=== PATIENT | male | born 1965 | race Hispanic/Latino ===

== ENCOUNTER 2018-06-09 21:44 | Emergency (ER) | payer OTHER, SELFPAY ==
[2018-06-09 22:34] LABS: Absolute Lymphocytes (CBC) 2.1 K/uL (0.7-4.9); Absolute Monocytes 0.4 K/uL (0.1-1.3); Basophils % 0.9 % (0-1.3); Eosinophils % 8.4 % (0-4.4); Hematocrit 38.7 % (39.6-49.0); Lymphocytes % 41.8 % (15.3-44.8); MPV 9.2 fL (7.6-11.3); Monocytes % 8.5 % (3.3-12.3); Protime INR 0.97; RBC Red Blood Cell Count 4.54 M/uL (4.33-5.43)
[2018-06-09] MEDS ORDERED: NA CHLORIDE 0.9% 1,000 ML ONE (22:39)
[2018-06-09] MEDS ORDERED: ONDANSETRON 4 MG/2 ML VIAL ONE (22:39)
[2018-06-09 22:52] LABS: ALT/SGPT 19 U/L (12-78); AST/SGOT 16 U/L (15-37); Albumin 3.8 g/dL (3.4-5.0); Alkaline Phosphatase 80 U/L (45-117); BUN Blood Urea Nitrogen 11 mg/dL (7-18); Bicarbonate 25 mmol/L (21-32); Bilirubin Direct 0.1 mg/dL (0-0.2); Bilirubin Total 0.4 mg/dL (0.2-1.0); Glucose Level 96 mg/dL (74-106); Magnesium 2.4 mg/dL (1.8-2.4); NT PRO-BNP 38 pg/mL (<125); Potassium 3.5 mmol/L (3.5-5.1); Protein, Total 7.8 g/dL (6.4-8.2); Sodium Level 143 mmol/L (136-145); Troponin (Emerg Dept Use Only) < 0.02 ng/mL (0.0-0.045)
[2018-06-09 23:12] LABS: CKMB Creatine Kinase MB 1.1 ng/mL (0.3-3.6); Creatine Phosphokinase 105 U/L (39-308)
[2018-06-09 23:43] LABS: Urine Blood NEGATIVE (NEG); Urine Glucose NEGATIVE (NEG); Urine Protein NEGATIVE (NEG)
[2018-06-09 23:54] LABS: Urine Bacteria <20 /HPF (NONE SEEN); Urine Culture Reflex Order NOT NEEDED; Urine RBC <5 /HPF (NONE SEEN)
[2018-06-09 23:55] LABS: Barbiturates NEGATIVE (NEGATIVE); Benzodiazepines NEGATIVE (NEGATIVE); Cocaine NEGATIVE (NEGATIVE); METHAMPHETAM NEGATIVE (NEGATIVE); Methadone NEGATIVE (NEGATIVE); Opiates NEGATIVE (NEGATIVE); Phencyclidine NEGATIVE (NEGATIVE); THC Cannibis NEGATIVE (NEGATIVE)
--- NOTE | 2018-06-10 01:08 | ER ---
Nurse's Notes [facility] Name: Vineet Pleitez Age: 53 yrs Sex: Male : 1965 Arrival Date: 06/09/2018 Time: 21:45 Bed 6 Private MD: Diagnosis: Weakness-general Presentation: 06/09 22:12 Presenting complaint: Child states: Found about an hour ago at home, no A/C on, lp1 unresponsive per family; Son stats patient would not open his eyes, had to be carried to car, confused; Patient awake on arrival to ED, A/O x2; Patient states feeling weak, achy all over. Transition of care: patient was not received from another setting of care. Onset of symptoms was June 09, 2018 at 21:00. Risk Assessment: Do you want to hurt yourself or someone else? Patient reports no desire to harm self or others. Care prior to arrival: None. 22:12 Method Of Arrival: Wheelchair lp1 22:12 Acuity: JUAN FRANCISCO 2 lp1 22:20 Initial Sepsis Screen: Does the patient meet any 2 criteria? Altered Mental Status. lp1 Does the patient have a suspected source of infection? No. Patient's initial sepsis screen is negative. 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 - Social history:: Smoking status: Patient uses tobacco products, smokes one-half pack cigarettes per day, Patient uses alcohol. - Ebola Screening: : No symptoms or risks identified at this time. Screenin:19 Abuse screen: Denies threats or abuse. Denies injuries from another. Nutritional lp1 screening: No deficits noted. Tuberculosis screening: Has had TB. Fall Risk Total Beaver Fall Scale indicates High Risk Score (45 or more points). Fall prevention measures have been instituted. Side Rails Up X 2 Family Present and informed to notify staff if the need to leave the bedside As available patient and family educated on Fall Prevention Program and Strategies. Assessment: 22:17 General: Appears in no apparent distress. Behavior is cooperative, drowsy, Reports lp1 chills for feeling ill for. Pain: Complains of pain in general body Quality of pain is described as aching. Neuro: Level of Consciousness is awake, confused, lethargic, Oriented to person, place, Cash [employer] are equal bilaterally Moves all extremities. Full function Speech is normal, Intact. Cardiovascular: Capillary refill < 3 seconds in bilateral fingers Patient's skin is warm and dry. Rhythm is sinus rhythm. Respiratory: Respiratory effort is even, unlabored, Breath sounds are clear bilaterally. GI: Abdomen is flat, Reports vomiting, Patient currently denies diarrhea. : No signs and/or symptoms were reported regarding the genitourinary system. EENT: No signs and/or symptoms were reported regarding the EENT system. Derm: Skin is intact, Skin is dry, Skin is normal. Musculoskeletal: No signs and/or symptoms reported regarding the musculoskeletal system. 22:45 Reassessment: Patient seems more alert at this time; talking with family at bedside, lp1 eyes wide open. Neuro: Level of Consciousness is awake, alert, obeys commands, Oriented to person, place, situation. 23:45 Reassessment: Patient appears in no apparent distress at this time. Patient and/or lp1 family updated on plan of care and expected duration. Pain level reassessed. Patient resting, eyes closed, respirations unlabored; family at bedside. 06/10 01:30 Reassessment: Patient and/or family updated on plan of care and expected duration. Pain lp1 level reassessed. Patient is alert, oriented x 3, equal unlabored respirations, skin warm/dry/pink. Patient states feeling better. Patient states symptoms have improved. Neuro: Gait is steady. Vital Signs: 06/09 22:14 BP 134 / 82; Pulse 69; Resp 18; Temp 98.1(O); Pulse Ox 97% on R/A; Weight 63.5 kg; lp1 Height 5 ft. 11 in. (180.34 cm); Pain 5/10; 23:00 BP 114 / 73; Pulse 64; Resp 20; Pulse Ox 98% on R/A; lp1 06/10 00:00 BP 99 / 59; Pulse 72; Resp 17; Pulse Ox 97% on R/A; lp1 01:37 BP 107 / 71; Pulse 71; Resp 16; Temp 97.8; Pulse Ox 98% on R/A; ag4 06/09 22:14 Body Mass Index 19.53 (63.50 kg, 180.34 cm) lp1 ED Course: 06/09 21:45 Patient arrived in ED. am2 22:00 EKG done, by ED staff, reviewed by Tai IVERSON. lp1 22:00 Inserted saline lock: 20 gauge in right forearm, using aseptic technique. Blood lp1 collected. 22:11 Tai Posadas PA is PHCP. cp 22:11 Tai Branch MD is Attending Physician. cp 22:12 Graciela Higginbotham, RN is Primary Nurse. lp1 22:13 Triage completed. lp1 22:14 Arm band placed on left wrist. lp1 22:20 Patient has correct armband on for positive identification. Placed in gown. Bed in low lp1 position. ekg monitor on. Pulse ox on. NIBP on. 06/10 00:37 CT completed. Patient tolerated procedure well. Patient moved to CT via stretcher. Patient moved back from CT. 00:41 CT Head Brain wo Cont In Process Unspecified. EDMS 01:03 XRAY Chest (1 view) In Process Unspecified. EDMS 01:43 No provider procedures requiring assistance completed. IV discontinued, No lp1 redness/swelling at site. Pressure dressing applied. Administered Medications: 06/09 22:25 Drug: NS 0.9% 1000 ml Route: IV; Rate: 1 bolus; Site: right forearm; lp1 06/10 00:00 Follow up: IV Status: Completed infusion; IV Intake: 1000ml lp1 01:44 Not Given (No complaint of nausea): Zofran 4 mg IVP once; over 2 minutes lp1 Point of Care Testing: Blood Glucose: 06/09 22:08 Blood Glucose: 90 mg/dL; lp1 Ranges: Intake: 06/10 00:00 IV: 1000ml; Total: 1000ml. lp1 Outcome: 01:08 Discharge ordered by . cp 01:43 Discharged to home ambulatory, with family. lp1 01:43 Condition: good 01:43 Discharge instructions given to patient, Instructed on discharge instructions, follow up and referral plans. Demonstrated understanding of instructions, follow-up care. 01:45 Patient left the ED. lp1 Signatures: Dispatcher [employer] EDNE Todd Diaz Graciela Higginbotham, RN RN lp1 Tai Posadas PA PA cp Moreno, Amanda am2 Del Morrow ag4 Corrections: (The following items were deleted from the chart) 06/09 22:14 22:12 Presenting complaint: Child states: Found about an hour ago at home, no A/C on, lp1 unresponsive per family; Son stats patient would not open his eyes, had to be carried to car, confused; Patient awake on arrival to ED, A/O x2; Patient states feeling weak lp1
--- NOTE | 2018-06-10 01:09 | EDPHYS ---
Physician Documentation [facility] Name: Vineet Pleitez Age: 53 yrs Sex: Male : 1965 Arrival Date: 06/09/2018 Time: 21:45 Bed 6 Private MD: ED Physician Tai Branch HPI: 06/09 22:25 This 53 yrs old Male presents to ER via Wheelchair with complaints of Altered cp Mental Status, dehydration. 22:25 The patient presents with decreased responsiveness. Onset: The symptoms/episode cp began/occurred today. Possible causes: dehydration. Associated signs and symptoms: Pertinent positives: general weakness, Pertinent negatives: abdominal pain, chest pain, diarrhea, shortness of breath, vomiting. Current symptoms: In the emergency department the patient's symptoms general weakness. Patient's baseline: Neuro: alert and fully oriented, Motor: no deficits, Ambulation: walks without assistance, Speech: normal. Patient reports he was at home this evening laying down when he fell asleep. Son reports difficulty awakening patient and patient now c/o general weakness. 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 - Social history:: Smoking status: Patient uses tobacco products, smokes one-half pack cigarettes per day, Patient uses alcohol. - Ebola Screening: : No symptoms or risks identified at this time. ROS: 22:30 Constitutional: Positive for body aches, Negative for chills, fever, poor PO intake. cp 22:30 Eyes: Negative for injury, pain, redness, and discharge. cp 22:30 ENT: Negative for drainage from ear(s), ear pain, sore throat, difficulty swallowing, difficulty handling secretions. 22:30 Cardiovascular: Negative for chest pain, edema. 22:30 Respiratory: Negative for cough, shortness of breath, wheezing. 22:30 Abdomen/GI: Negative for abdominal pain, vomiting, diarrhea, constipation, anorexia, black/tarry stool, rectal bleeding. 22:30 Back: Negative for injury or acute deformity. 22:30 : Negative for urinary symptoms, small amounts, testicular pain 22:30 Skin: Negative for cellulitis, rash. 22:30 Neuro: Positive for general weakness, Negative for altered mental status, headache, seizure activity, speech changes. 22:30 All other systems are negative. Exam: 22:10 ECG was reviewed by the Attending Physician. cp 22:35 Constitutional: The patient appears in no acute distress, alert, awake, cp non-diaphoretic, non-toxic, well developed, well nourished. 22:35 Head/Face: Normocephalic, atraumatic. cp 22:35 Eyes: Pupils equal round and reactive to light, extra-ocular motions intact. Lids and lashes normal. Conjunctiva and sclera are non-icteric and not injected. Cornea within normal limits. Periorbital areas with no swelling, redness, or edema. ENT: Nares patent. No nasal discharge, no septal abnormalities noted. Tympanic membranes are normal and external auditory canals are clear. Oropharynx with no redness, swelling, or masses, exudates, or evidence of obstruction, uvula midline. Mucous membranes moist. Neck: Trachea midline, no thyromegaly or masses palpated, and no cervical lymphadenopathy. Supple, full range of motion without nuchal rigidity, or vertebral point tenderness. No Meningismus. 22:35 Chest/axilla: Inspection: normal, Palpation: is normal, no crepitus, no tenderness. 22:35 Cardiovascular: Rate: normal, Rhythm: regular, Heart sounds: murmur, not appreciated, rub, not appreciated, gallop, not appreciated, Edema: is not appreciated, JVD: is not appreciated. 22:35 Respiratory: the patient does not display signs of respiratory distress, Respirations: normal, no use of accessory muscles, no retractions, no splinting, no tachypnea, labored breathing, is not present, Breath sounds: are clear throughout, no decreased breath sounds, no stridor, no wheezing. 22:35 Abdomen/GI: Inspection: abdomen appears normal, Bowel sounds: active, all quadrants, Palpation: abdomen is soft and non-tender, in all quadrants, voluntary guarding, is not appreciated, involuntary guarding, is not appreciated. 22:35 Back: pain, is absent, ROM is normal. 22:35 Skin: cellulitis, is not appreciated, no rash present. 22:35 Neuro: Orientation: to person, place \T\ time. Mentation: able to follow commands, slow to respond, Cerebellar function: is grossly normal, Motor: moves all fours, general weakness w/o focal deficits, Sensation: no obvious gross deficits. Vital Signs: 22:14 BP 134 / 82; Pulse 69; Resp 18; Temp 98.1(O); Pulse Ox 97% on R/A; Weight 63.5 kg; lp1 Height 5 ft. 11 in. (180.34 cm); Pain 5/10; 23:00 BP 114 / 73; Pulse 64; Resp 20; Pulse Ox 98% on R/A; lp1 06/10 00:00 BP 99 / 59; Pulse 72; Resp 17; Pulse Ox 97% on R/A; lp1 01:37 BP 107 / 71; Pulse 71; Resp 16; Temp 97.8; Pulse Ox 98% on R/A; ag4 06/09 22:14 Body Mass Index 19.53 (63.50 kg, 180.34 cm) lp1 MDM: 06/09 22:13 Patient medically screened. cp 22:30 Differential Diagnosis: CVA, electrolyte abnormality, alcohol intoxication, cp hypoglycemia, seizure, sepsis, TIA, UTI, volume depletion. 06/10 01:13 Data reviewed: vital signs, nurses notes, lab test result(s), EKG, radiologic studies, cp CT scan, plain films, I have discussed the patient's presentation/case with the attending Emergency Department Physician; and as a result, I will discharge patient. Test interpretation: by ED physician or midlevel provider: ECG, plain radiologic studies. ED course: chest xray negative for acute or focal infiltrates. 01:13 Counseling: I had a detailed discussion with the patient and/or guardian regarding: the cp historical points, exam findings, and any diagnostic results supporting the discharge/admit diagnosis, lab results, radiology results, to return to the emergency department if symptoms worsen or persist or if there are any questions or concerns that arise at home. 01:13 Response to treatment: the patient's symptoms have markedly improved after treatment, cp VSS. Patient reports symptoms markedly improved after treatment. Patient observed ambulating in ED with steady gait. 06/09 22:21 Order name: Basic Metabolic Panel; Complete Time: 23:55 cp 06/09 22:57 Interpretation: Normal except: CL 109. cp 06/09 22:21 Order name: CBC with Diff; Complete Time: 22:57 cp 06/09 22:57 Interpretation: Normal except: HCT 38.7; MELLISA% 40.4; EOSINOPHIL % 8.4. cp / 22:21 Order name: LFT's; Complete Time: 23:55 cp 06/09 23:56 Interpretation: Normal except: GLOB 4.0; A/G 1.0. cp / 22:21 Order name: Magnesium; Complete Time: 23:55 cp 06/09 22:21 Order name: NT PRO-BNP; Complete Time: 23:55 cp 06/09 22:21 Order name: PT-INR; Complete Time: 22:57 cp 06/09 22:21 Order name: Troponin (emerg Dept Use Only); Complete Time: 23:55 cp 06/09 22:21 Order name: Urine Microscopic Only; Complete Time: 23:55 cp 06/09 22:21 Order name: UDS; Complete Time: 01:04 cp 06/09 22:59 Order name: Creatine Phosphokinase; Complete Time: 23:55 EDMS 06/09 22:59 Order name: CKMB Creatine Kinase MB; Complete Time: 23:55 EDMS 06/09 23:24 Order name: Urine Dipstick--Ancillary (enter results); Complete Time: 23:55 ag4 06/09 22:21 Order name: EKG; Complete Time: 22:22 cp 06/09 22:21 Order name: Cardiac monitoring; Complete Time: 22:23 cp 06/09 22:21 Order name: EKG - Nurse/Tech; Complete Time: 22:23 cp 06/09 22:21 Order name: IV Saline Lock; Complete Time: 22:22 cp 06/09 22:21 Order name: Labs collected and sent; Complete Time: 22:22 cp 06/09 22:21 Order name: O2 Per Protocol; Complete Time: 22:22 cp 06/09 22:21 Order name: O2 Sat Monitoring; Complete Time: 22:22 cp 06/09 22:21 Order name: Urine Dipstick-Ancillary (obtain specimen); Complete Time: 23:21 cp 06/09 23:56 Order name: CT Head Brain wo Cont cp 06/09 23:57 Order name: XRAY Chest (1 view) cp EC/01 22:10 Rate is 59 beats/min. Rhythm is regular. NC interval is normal. QRS interval is normal. cp QT interval is normal. Interpreted by me. Reviewed by me. Administered Medications: 22:25 Drug: NS 0.9% 1000 ml Route: IV; Rate: 1 bolus; Site: right forearm; lp1 06/10 00:00 Follow up: IV Status: Completed infusion; IV Intake: 1000ml lp1 01:44 Not Given (No complaint of nausea): Zofran 4 mg IVP once; over 2 minutes lp1 Point of Care Testing: Blood Glucose: 06/09 22:08 Blood Glucose: 90 mg/dL; lp1 Ranges: Critical Glucose Levels:Adult <50 mg/dl or >400 mg/dl <40 mg/dl or >180 mg/dl Disposition: 06/10 07:57 Co-signature as Attending Physician, Tai Branch MD I agree with the assessment and robert plan of care. Disposition: 06/10/18 01:08 Discharged to Home. Impression: Weakness - general. - Condition is Stable. - Discharge Instructions: Weakness. - Work release form, Family Work Release, Medication Reconciliation Form, Thank You Letter, Antibiotic Education, Prescription Opioid Use form. - Follow up: Private Physician; When: 1 - 2 days; Reason: Recheck today's complaints. - Problem is new. - Symptoms have improved. Signatures: Dispatcher [employer] Tai Londono MD MD cha Pena, Laura, RN RN lp1 Tai Posadas PA PA cp Corrections: (The following items were deleted from the chart) 06/09 23:03 22:59 CREATINE PHOSPHOKINASE+C.LAB.BRZ ordered. [facility] 23:03 22:59 CKMB+C.LAB.BRZ ordered. [facility] 06/10 01:45 01:08 06/10/2018 01:08 Discharged to Home. Impression: Weakness - general. Condition is lp1 Stable. Forms are Medication Reconciliation Form, Thank You Letter, Antibiotic Education, Prescription Opioid Use. Follow up: Private Physician; When: 1 - 2 days; Reason: Recheck today's complaints. Problem is new. Symptoms have improved. cp
--- NOTE | 2018-06-10 07:13 | EKG ---
Test Date: 2018-06-09 Test Time: 22:04:08 Paper Folder: [id number] MEASUREMENT RESULTS: Intervals: Rate: 59 PA: 156 QRSD: 88 QT: 438 QTc: 433 Andrews: P: 55 PA: 156 QRS: 26 T: 33 INTERPRETIVE STATEMENTS: Sinus bradycardia Otherwise normal ECG Compared to ECG 07/28/2006 18:51:22 Sinus rhythm no longer present Left ventricular hypertrophy no longer present Electronically Signed On 06-10-18 07:12:19 CDT by Hugh Kaye
--- NOTE | 2018-06-10 08:24 | RAD REPORT ---
EXAM DESCRIPTION: RAD - Chest Single View - 06/10/2018 1:03 am CLINICAL HISTORY: general weakness Chest pain. COMPARISON: No comparisons FINDINGS: Portable technique limits examination quality. Prominent emphysematous changes are present. Large areas of bulla identified in the lung apices. Irre gular scarring is also suspected left upper lobe. The heart is mildly prominent size. No displaced fr actures.
--- NOTE | 2018-06-10 09:24 | RAD REPORT ---
EXAM DESCRIPTION: Head Brain Wo Cont CLINICAL HISTORY: 53 years Male general weakness COMPARISON: None TECHNIQUE: Contiguous axial images of the brain were obtained without the administration of intraven ous contrast.This exam was performed according to our departmental dose-optimization program which in cludes use of Automated Exposure Control, adjustment of the mA and/or kV according to patient size an d/or use of iterative reconstruction technique. FINDINGS: Brain: No acute intracranial hemorrhage. No acute territorial infarct. No extra-axial jenise ection. No mass effect or herniation. Ventricles: Within normal limits in size. Globes and orbits: No acute abnormality. Bones: No acute osseous finding. Paranasal sinuses: Paranasal sinuses are clear.. Mastoid air cells: Well pneumatized.. Soft tissues: Within normal limits IMPRESSION: No acute intracranial abnormality. Electronically signed by: Trevor Knight DO 06/10/2018 12:45 AM CDT Due to temporary technical issues with the PACS/Fluency reporting system, reports are being signed by the in house radiologist as a courtesy to ensure prompt reporting. The interpreting radiologist is f ully responsible for the content of the report.
== END 2018-06-10 01:45 | disposition home or self-care (01) ==
LOC: ER 21:44
DX: R53.1 Weakness (principal); J45.909 Unspecified asthma, uncomplicated; F17.210 Nicotine dependence, cigarettes, uncomplicated
CPT/HCPCS: 36415; 70450; 71045; 80048; 80076; 80307; 81003; 81015; 82550; 82553; 82962; 83735; 83880; 84484; 85025; 85610; 93005; 96360; 96361; 99285; J2405; J7030